=== PATIENT | male | born 1975 | race Caucasian/White ===

== ENCOUNTER 2019-02-13 22:56 | Emergency (ER) | payer BC ==
[2019-02-13 23:13] VITALS: BP 137/74; PULSE 81; RESP 16; TEMP 98.3
--- NOTE | 2019-02-13 23:23 | ED ---
Upper Extremity HPI - General Chief Complaint: Extremity Injury, Upper Stated Complaint: Rt Arm Injury Time Seen by Provider: 02/13/19 23:18 Source: patient, RN notes reviewed, old records reviewed Mode of arrival: ambulatory - History of Present Illness Initial Comments: This is a 43-year-old male the ER for evaluation. Patient resents today for evaluation of right forearm pain. Patient complaining of pain and swelling his right forearm is been going on for a few hours after falling off tractor, patient based rectum a random over. He does have pain and injury as well as her right forearm. Patient states he is able to move fingers. No other injury from traumatic event Complaint: Injury to:: right, forearm -: hour(s) (4) Other Extremity Injury: Arm: Right Other Injuries: none Handedness: right Place: home Severity scale (1-10): 6 (Swelling) Improves With: cold therapy Worsens With: none Context: fall, direct blow Associated Symptoms: denies other symptoms - Related Data Home Medications Medication Instructions Recorded Confirmed No Known Home Medications 02/13/19 02/13/19 Allergies Allergy/AdvReac Type Severity Reaction Status Date / Time No Known Allergies Allergy Unverified 02/13/19 23:16 Review of Systems ROS Statement: Those systems with pertinent positive or pertinent negative responses have been documented in the HPI. ROS Other: All systems not noted in ROS Statement are negative. Past Medical History Additional Past Medical History / Comment(s): denies Additional Past Surgical History / Comment(s): bilat ankle Past Psychological History: No Psychological Hx Reported Smoking Status: Current every day smoker Past Alcohol Use History: Occasional Past Drug Use History: None Reported General Exam - General Exam Comments Initial Comments: Patient does have significant swelling to right forearm with abrasion bruising. Patient does have good radial pulse able to move fingers, radial ulnar and median nerves are intact. General appearance: alert, in no apparent distress Head exam: Present: atraumatic, normocephalic, normal inspection Eye exam: Present: normal appearance, PERRL, EOMI. Absent: scleral icterus, conjunctival injection, periorbital swelling ENT exam: Present: normal exam, mucous membranes moist Neck exam: Present: normal inspection. Absent: tenderness, meningismus, lymphadenopathy Respiratory exam: Present: normal lung sounds bilaterally. Absent: respiratory distress, wheezes, rales, rhonchi, stridor Cardiovascular Exam: Present: regular rate, normal rhythm, normal heart sounds. Absent: systolic murmur, diastolic murmur, rubs, gallop, clicks GI/Abdominal exam: Present: soft, normal bowel sounds. Absent: distended, tenderness, guarding, rebound, rigid Extremities exam: Present: normal inspection, full ROM, normal capillary refill. Absent: tenderness, pedal edema, joint swelling, calf tenderness Back exam: Present: normal inspection Neurological exam: Present: alert, oriented X3, CN II-XII intact Psychiatric exam: Present: normal affect, normal mood Skin exam: Present: warm, dry, intact, normal color. Absent: rash Course Vital Signs 02/13/19 23:09 Temperature 98.3 F Pulse Rate 81 Respiratory 16 Rate Blood Pressure 137/74 O2 Sat by Pulse 97 Oximetry - Reevaluation(s) Reevaluation #1: 02/14/19 00:46 Medical records reviewed Reevaluation #2: 02/14/19 00:46 Evaluated patient and scapholunate joint, patient has no tenderness Medical Decision Making - Medical Decision Making 43 male the ER which medical forearm injury. Patient encouraged to continue to rest ice and elevate - Radiology Data Radiology results: report reviewed (X-ray right forearm negative for significant traumatic injury), image reviewed Disposition Clinical Impression: Contusion of arm, right Disposition: HOME SELF-CARE Condition: Good Instructions (If sedation given, give patient instructions): Contusion in Adults (ED) Is patient prescribed a controlled substance at d/c from ED?: No Referrals: None,Stated [Primary Care Provider] - 1-2 days
--- NOTE | 2019-02-13 23:53 | XR ---
EXAM: XR Right Forearm, 2 Views CLINICAL HISTORY: Reason: Pain TECHNIQUE: Frontal and lateral views of the right forearm. COMPARISON: No relevant prior studies available. FINDINGS: Bones/joints: No acute fracture. Mild widening of the scapholunate interval measures 4 mm. Soft tissues: Unremarkable. IMPRESSION: No acute fracture. Mild widening of the scapholunate interval can be seen in the setting of ligamentous injury.
[2019-02-14] MEDS ORDERED: ACET/COD 300 MG/30 MG STARTER PACK 6 TAB BTL PO STA (00:23)
[2019-02-14] MEDS ORDERED: IBUPROFEN 800 MG TAB PO STA (00:23)
[2019-02-14] MEDS ORDERED: ACETAMINOPHEN TAB 500 MG TAB PO STA (00:23)
== END 2019-02-14 00:40 | disposition home or self-care (01) ==
LOC: EC 22:56
DX: S50.11XA Contusion of right forearm, initial encounter (principal); F17.200 Nicotine dependence, unspecified, uncomplicated; V84.9XXA Unspecified occupant of special agricultural vehicle injured in nontraffic accident, initial encounter; Y92.009 Unspecified place in unspecified non-institutional (private) residence as the place of occurrence of the external cause
CPT/HCPCS: 99284